=== PATIENT | male | born 1955 | race Two or more races ===

== ENCOUNTER 2022-12-03 23:29 | Emergency (ER) | payer MEDICARE, OTHER ==
[~2022-12-03] VITALS: Ht 165.1 cm; Wt 74.0 kg
[2022-12-03 23:49] VITALS: BP 145/73; PULSE 81; RESP 20; TEMP 98.9
[2022-12-04 00:32] LABS: COVID AG,FIA SOURCE NASAL SWAB
[2022-12-04 00:53] LABS: INFLUENZA TYPE A NEGATIVE FOR TYPE A (NEGATIVE); INFLUENZA TYPE B NEGATIVE FOR TYPE B (NEGATIVE); SARS-COV2 (COVID) ANTIGEN,FIA Negative (Negative)
[2022-12-04 06:16] LABS: GLUCOMETER DEV NAME(LOC) ERT.5; GLUCOSE,POINT OF CARE 137 MG/DL (70-110)
== END 2022-12-04 02:56 | disposition home or self-care (01) ==
LOC: EMS 23:29
DX: J32.9 Chronic sinusitis, unspecified (principal); E11.9 Type 2 diabetes mellitus without complications; Z20.822 Contact with and (suspected) exposure to COVID-19
CPT/HCPCS: 82962; 87804; 99283